=== PATIENT | female | born 1990 | race Caucasian/White ===

== ENCOUNTER 2023-07-16 16:31 | Emergency (ER) | payer BC, SELFPAY ==
--- NOTE | 2023-07-16 16:45 | PC.NURSE ---
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 PT VERBALIZED UNDERSTANDING.
[2023-07-16 16:47] VITALS: BP 112/78; PULSE 92; RESP 16; TEMP 37.3; O2SAT 100
--- NOTE | 2023-07-16 17:26 | PC.NURSE ---
Addendum entered by Glynn Rodriguez RN 07/16/23 17:27: REVENUE AGENT AT BEDSIDE AT 1650 Original Note: REVENUE AGENT GOES INTO ROOM TO ASSESS PT, SHE HAD ELOPED PER REGISTRATION.
--- NOTE | 2023-07-16 19:51 | ED.URI ---
HPI - URI/Sore Throat General Chief Complaint: Upper Respiratory Infection Stated Complaint: SORE THROAT/EARACHE Related Data Home Medications Medication Instructions Recorded Confirmed dextroamphetamine-amphetamine 10 10 mg PO DAILY 07/16/23 07/16/23 mg tablet drospirenone 3 mg-ethinyl 1 tablet PO DAILY 07/16/23 07/16/23 estradiol 0.02 mg tablet Allergies Allergy/AdvReac Type Severity Reaction Status Date / Time Penicillins Allergy Unknown Verified 07/16/23 17:06 Course Vital Signs Vital signs: Vital Signs Oxygen Delivery Room Air 07/16/23 16:44 Temperature 37.3 C 07/16/23 16:47 Pulse Rate 92 07/16/23 16:47 Respiratory Rate 16 07/16/23 16:47 Blood Pressure 112/78 07/16/23 16:47 Pulse Oximetry 100 07/16/23 16:47 Oxygen Delivery Room Air 07/16/23 16:44 MDM - URI/Sore Throat Lab Data Labs: Strep Screen Presumptive Negative *(Reference Range: Negative)* Discharge Plan Discharge Patient Disposition: Left Without Being Seen Prescriptions: No Action dextroamphetamine-amphetamine 10 mg tablet 10 mg PO DAILY drospirenone-ethinyl estradiol 3-0.02 mg tablet 1 tablet PO DAILY Follow-up/Referrals: Fan,Liane [Other]
== END 2023-07-16 16:50 | disposition left against medical advice (07) ==
PROVIDERS: Emergency Provider Nurse Practitioner Family
DX: Z53.21 Procedure and treatment not carried out due to patient leaving prior to being seen by health care provider (principal)
CPT/HCPCS: 87081; 87880; 99199

== ENCOUNTER 2023-07-16 19:46 | Emergency (ER) | payer BC, SELFPAY ==
[2023-07-16 19:53] VITALS: BP 113/78; PULSE 84; RESP 16; TEMP 37.1; O2SAT 100
--- NOTE | 2023-07-16 19:53 | ED.URI ---
HPI - URI/Sore Throat General Chief Complaint: Upper Respiratory Infection Stated Complaint: sore throat Time Seen by Provider: 07/16/23 19:53 Source: patient Mode of arrival: ambulatory Limitations: no limitations History of Present Illness HPI Narrative: 32-year-old female presents with complaint of sore throat to right side, also right ear pain and right enlarged lymph nodes since yesterday. Reports pain worse with swallowing. No difficulty swelling. Afebrile. Denies nausea vomiting diarrhea. Taking ibuprofen to treat pain. All systems reviewed and negative except as noted above. Related Data Home Medications Medication Instructions Recorded Confirmed dextroamphetamine-amphetamine 10 10 mg PO DAILY 07/16/23 07/16/23 mg tablet drospirenone 3 mg-ethinyl 1 tablet PO DAILY 07/16/23 07/16/23 estradiol 0.02 mg tablet Allergies Allergy/AdvReac Type Severity Reaction Status Date / Time Penicillins Allergy Unknown Verified 07/16/23 19:53 Review of Systems Review of Systems: CONSTITUTIONAL: Denies fever, chills, or sweats. EYES: Denies visual changes, redness, or discharge. ENT: Denies rhinorrhea, congestion. Reports right-sided sore throat, right ear pain. CARDIOVASCULAR: Denies chest pain, palpitations, or edema. RESPIRATORY: Denies cough or dyspnea. GASTROINTESTINAL: Denies abdominal pain, nausea, vomiting, or diarrhea. GENITOURINARY: Denies dysuria or hematuria. SKIN: Denies rash or itching. MUSCULOSKELETAL: Denies back pain, joint pain, or myalgia. NEUROLOGIC: Denies headache, numbness, or weakness. PSYCHIATRIC: Denies anxiety or depression. All other systems reviewed are negative, except as documented in HPI. PMFSH Comments At time of signature, agree with nursing past medical, surgical, social and family history. There is no relevant family history pertinent to the presenting complaint. Exam Narrative: GENERAL: This is a well-nourished, well-developed patient, in no apparent distress. HEAD: normocephalic, atraumatic. EYES: PERRL. Sclera clear/white. Vision is grossly intact. EARS: External ears normal, auditory canals clear and without drainage, TMs normal without perforation. Hearing grossly intact. NOSE: External nose normal with no obvious nasal discharge, nares without redness, no rhinorrhea. THROAT: Mucous membranes moist, tonsils 1+ bilaterally with erythema and exudates. No exam findings of peritonsillar abscess. NECK: Neck supple, non-tender without lymphadenopathy, masses or thyromegaly. CARDIOVASCULAR: Regular rate and rhythm without murmurs, gallops, or rubs. RESPIRATORY: Clear to auscultation. Breath sounds equal bilaterally. No wheezes, rales, or rhonchi. SKIN: warm, Dry, intact with no suspicious lesions or rash, good texture and turgor. NEURO: awake, alert, and oriented to person, place and time. There were no obvious focal neurologic abnormalities. EXTREMITIES: No joint tenderness, effusion, or edema noted. Course Course Level of Care: Express Care Visit Vital Signs Vital signs: Reviewed MDM - URI/Sore Throat MDM Narrative Medical decision making narrative: Patient is aware of diagnosis, understands and agrees to treatment plan. Anticipatory guidance given. Patient agrees to follow-up as directed and is aware of reasons to seek care at the emergency department. Portions of this record may have been created with voice recognition software Differential Diagnosis Differential diagnosis: Likely pharyngitis Discharge Plan Discharge Clinical Impression: Strep throat Patient Disposition: Home, Self-Care Condition: Stable Instructions: Antibiotic Form, Strep Throat (ED) Additional Instructions: Take antibiotics as prescribed until gone. Alternate between Tylenol and ibuprofen every 4 hours to treat her pain. Drink at least 64 oz of water a day. Change her toothbrush after taking antibiotics for 24 hours. Follow-up with your primary care physician if s
== END 2023-07-16 20:05 | disposition home or self-care (01) ==
PROVIDERS: Emergency Provider Nurse Practitioner Family
DX: J02.0 Streptococcal pharyngitis (principal); Z79.899 Other long term (current) drug therapy
CPT/HCPCS: 87081; 87880; 99213; G0463

== ENCOUNTER 2023-09-26 16:50 | Emergency (ER) | payer BC, SELFPAY ==
[2023-09-26 17:08] VITALS: BP 103/86; PULSE 90; RESP 16; TEMP 36.8; O2SAT 100
--- NOTE | 2023-09-26 17:37 | ED.URI ---
HPI - URI/Sore Throat General Chief Complaint: Upper Respiratory Infection Stated Complaint: Sinus Infection Time Seen by Provider: 09/26/23 17:28 Source: patient and RN notes reviewed Mode of arrival: ambulatory Limitations: no limitations History of Present Illness HPI Narrative: Patient presents today with a 3 week history of cough, sore throat, postnasal drip, nasal congestion, fatigue, sinus pressure. States the cough and sore throat have somewhat improved. She has been taking Tylenol and ibuprofen with mild relief. Denies shortness of breath or fever. Related Data Home Medications Medication Instructions Recorded Confirmed dextroamphetamine-amphetamine 10 10 mg PO DAILY 07/16/23 09/26/23 mg tablet drospirenone 3 mg-ethinyl 1 tablet PO DAILY 07/16/23 09/26/23 estradiol 0.02 mg tablet levothyroxine 25 mcg tablet 25 mcg PO DAILY 09/26/23 09/26/23 Allergies Allergy/AdvReac Type Severity Reaction Status Date / Time Penicillins Allergy Unknown Verified 09/26/23 17:04 Review of Systems Review of Systems: CONSTITUTIONAL: Denies body aches, fever, chills, or sweats.+ fatigue EYES: Denies visual changes, redness, or discharge. ENT: Denies rhinorrhea, or otalgia.+ sore throat, congestion, postnasal drip, sinus pressure CARDIOVASCULAR: Denies chest pain, palpitations, or edema. RESPIRATORY: Denies dyspnea.+ cough GASTROINTESTINAL: Denies abdominal pain, nausea, vomiting, or diarrhea. GENITOURINARY: Denies dysuria or hematuria. SKIN: Denies rash, itching, or wounds. MUSCULOSKELETAL: Denies back pain, joint pain, or myalgia. NEUROLOGIC: Denies headache, numbness, tingling, or weakness. PSYCH: Denies depression or anxiety. PMFSH Comments At time of signature, I have reviewed and agree with nursing past medical, surgical, social and family history unless otherwise noted. Please see nursing chart for further information. There is no relevant family history pertinent to the presenting complaint Exam Narrative: GENERAL: Mildly ill-appearing, well-nourished, and in no acute distress. HEAD: Normocephalic, atraumatic. EYES: EOMI. No redness or drainage. Conjunctivae normal. ENT: Mucous membranes pink and moist. Nares congested. No rhinorrhea. TMs normal bilaterally. Throat normal with small amount of purulent postnasal drainage. Uvula midline. Bilateral frontal sinus tenderness. NECK: Normal AROM. Supple. No lymphadenopathy. CHEST: No respiratory distress. Clear to auscultation. HEART: Regular rate and rhythm. No murmur appreciated. EXTREMITIES: Normal range of motion. No edema. SKIN: Warm, dry, no rash. Capillary refill normal. Normal skin turgor. NEURO: No focal deficits. Alert and oriented x3. Gait steady. PSYCH: Normal affect. No signs of depression or anxiety. Course Course Level of Care: Express Care Visit Vital Signs Vital signs: Vital Signs Temperature 98.3 F 09/26/23 17:08 Pulse Rate 90 09/26/23 17:08 Respiratory Rate 16 09/26/23 17:08 Blood Pressure 103/86 09/26/23 17:08 Pulse Oximetry 100 09/26/23 17:08 Temperature 98.3 F 09/26/23 17:08 Pulse Rate 90 09/26/23 17:08 Respiratory Rate 16 09/26/23 17:08 Blood Pressure 103/86 09/26/23 17:08 Pulse Oximetry 100 09/26/23 17:08 Reviewed MDM - URI/Sore Throat MDM Narrative Medical decision making narrative: Patient will be treated with doxycycline for sinusitis. Discussed considering Sudafed for her pressure and congestion as well. No testing indicated at this time. Anticipatory guidance given. Differential Diagnosis Differential diagnosis: Likely upper respiratory infection, sinusitis, viral infection and bronchitis Critical Care Time Critical Care Time Critical Care Time: No Discharge Plan Discharge Clinical Impression: Sinusitis Qualifiers: Sinusitis location: frontal Chronicity: acute Recurrence: non-recurrent Qualified Code(s): J01.10 - Acute frontal sinusitis, unspecified
== END 2023-09-26 17:44 | disposition home or self-care (01) ==
PROVIDERS: Emergency Provider Nurse Practitioner
DX: J01.10 Acute frontal sinusitis, unspecified (principal); E03.9 Hypothyroidism, unspecified; E28.2 Polycystic ovarian syndrome; F90.9 Attention-deficit hyperactivity disorder, unspecified type
CPT/HCPCS: 99213; G0463

== ENCOUNTER 2024-04-03 08:22 | Emergency (ER) | payer BC, SELFPAY ==
[2024-04-03 08:32] VITALS: BP 98/71; PULSE 106; RESP 16; TEMP 36.9; O2SAT 100
--- NOTE | 2024-04-03 08:32 | ED.EAR ---
HPI - Ear Problem General Chief complaint: Ear Stated complaint: Ear Pain Time Seen by Provider: 04/03/24 09:00 Source: patient and RN notes reviewed Mode of arrival: ambulatory Limitations: no limitations History of Present Illness HPI Narrative: 33-year-old female presents with concern for bilateral ear pain and sore throat. Reports she has had ear pain for 3 weeks it has been getting worse. Reports she flew to [place] in early March in the pain started at that time. Reports she feels like she is underwater. Reports she has been using ciprofloxacin ear drops for 4 days. She reports her parents who also went to floor with her both had ear infections. She reports she has had a headache. She denies fever. MD Complaint: ear pain Related Data Home Medications Medication Instructions Recorded Confirmed dextroamphetamine-amphetamine 10 10 mg PO DAILY 07/16/23 04/03/24 mg tablet drospirenone 3 mg-ethinyl 1 tablet PO DAILY 07/16/23 04/03/24 estradiol 0.02 mg tablet levothyroxine 25 mcg tablet 25 mcg PO DAILY 09/26/23 04/03/24 ferrous sulfate 325 mg (65 mg mg 04/03/24 iron) tablet (FeroSul) Allergies Allergy/AdvReac Type Severity Reaction Status Date / Time Penicillins Allergy Unknown Verified 04/03/24 08:41 Review of Systems Review of Systems: CONSTITUTIONAL: Denies malaise, chills, sweats, or fever. EYES: Denies visual changes, redness, or discharge. ENT: Denies rhinorrhea, congestion, sinus pain,. Reports sore throat and bilateral ear pain CARDIOVASCULAR: Denies chest pain, palpitations, or edema. RESPIRATORY: Denies cough. Denies dyspnea. GASTROINTESTINAL: Denies abdominal pain, nausea, vomiting, diarrhea SKIN: Denies rash or itching. MUSCULOSKELETAL: Denies myalgia. NEUROLOGIC: Reports headache. All systems reviewed & are unremarkable except as noted in HPI and below PMFSH Comments At time of signature, agree with nursing past medical, surgical, social and family history. There is no relevant family history pertinent to the presenting complaint Exam Narrative: GENERAL: Well-appearing, well-nourished, and in no acute distress. HEAD: Normocephalic EYES: PERRLA, conjunctivae clear ENT: Nares clear, turbinates edematous, clear discharge. Mucous membranes moist. TM pearly [place] with dull light reflex bilaterally; no tragal tenderness. Oropharynx not erythematous without lesions. Tonsils not enlarged and without exudate, no drooling, no hoarseness, no trismus, uvula midline. NECK: Supple. No lymphadenopathy CHEST: Clear to auscultation, breath sounds equal. No wheezing, rhonchi, rales, or stridor. No respiratory distress, speaks in full sentences. HEART: Regular rate and rhythm. No murmur heard. SKIN: Warm, dry, no rash. NEURO: Alert and oriented x3. PSYCH: Normal mood and affect Course Course Emergency Course: Patient is aware of diagnosis, understands and agrees to treatment plan. Anticipatory guidance given. Patient agrees to follow-up as directed and is aware of reasons to seek care at the emergency department. Portions of this record may have been created with voice recognition software Level of Care: [facility] Visit Vital Signs Vital signs: Vital Signs Temperature 98.4 F 04/03/24 08:32 Pulse Rate 106 H 04/03/24 08:32 Respiratory Rate 16 04/03/24 08:32 Blood Pressure 98/71 L 04/03/24 08:32 Pulse Oximetry 100 04/03/24 08:32 Temperature 98.4 F 04/03/24 08:32 Pulse Rate 106 H 04/03/24 08:32 Respiratory Rate 16 04/03/24 08:32 Blood Pressure 98/71 L 04/03/24 08:32 Pulse Oximetry 100 04/03/24 08:32 Reviewed. Medical Decision Making MDM Narrative Medical decision making narrative: I evaluated this in the [facility]. History is obtained from patient who is an independent historian and physical exam was performed.? Available medical records were reviewed. ? Exam findings and relevant testing show no acute concerns or changes; patient is non-toxic
[2024-04-03 09:23] LABS: EDSTREPNEGPOS1 Presumptive Negative
== END 2024-04-03 09:22 | disposition home or self-care (01) ==
PROVIDERS: Emergency Provider Nurse Practitioner
DX: H92.03 Otalgia, bilateral (principal); E03.9 Hypothyroidism, unspecified; E28.2 Polycystic ovarian syndrome; F90.9 Attention-deficit hyperactivity disorder, unspecified type
CPT/HCPCS: 87081; 87880; 99213; G0463

== ENCOUNTER 2024-05-05 16:25 | Emergency (ER) | payer BC, SELFPAY ==
--- NOTE | 2024-05-05 16:28 | ED.SKABFB ---
HPI - Skin/Abscess/Foreign Bdy General Chief complaint: Skin/Abscess/Foreign Body Stated complaint: RASH Time Seen by Provider: 05/05/24 16:26 Source: patient Mode of arrival: ambulatory Limitations: no limitations History of Present Illness HPI narrative: Gabbie is a 33-year-old female patient presenting to the clinic today with complaints of a rash on her left lower abdomen and left side of her back-also has rash to the mid back. Is very itchy. She is concerned that she may have shingles. She reports that she is doing IVF and has just had an implant procedure. Denies any environmental changes. Related Data Home Medications Medication Instructions Recorded Confirmed dextroamphetamine-amphetamine 10 10 mg PO DAILY 07/16/23 04/03/24 mg tablet drospirenone 3 mg-ethinyl 1 tablet PO DAILY 07/16/23 04/03/24 estradiol 0.02 mg tablet levothyroxine 25 mcg tablet 25 mcg PO DAILY 09/26/23 04/03/24 ferrous sulfate 325 mg (65 mg mg 04/03/24 iron) tablet (FeroSul) Allergies Allergy/AdvReac Type Severity Reaction Status Date / Time Penicillins Allergy Unknown Verified 04/03/24 08:41 Review of Systems Review of Systems: Pertinent positives per HPI. Patient denies any fever, chills, headache, visual changes, dizziness, cough, runny nose, sore throat, shortness of breath, chest pain, palpitations, nausea, vomiting, diarrhea, constipation, abdominal pain, or any urinary issues. PMFSH Comments At the time of my signature, I reviewed and agree with the nursing past medical, surgical, social, and family history. There is no relevant family history pertinent to the patient complaint. Exam Narrative: General: Well-developed, well nourished, in no apparent distress Head: Normocephalic, atraumatic. Cardio: Regular rate and rhythm, s1 and s2 normal, no murmur appreciated. Resp: Clear to auscultation bilaterally, no rhonchi, rales, wheezing or rubs. Integumentary: [place], warm, and dry, intact without lesion, red, raised, itchy rash to the left lower abdomen, left posterior hip, and to the mid back just below the bra line. Course Course Emergency Course: Portions of this record may have been created with voice recognition software. Level of Care: Express Care Visit Vital Signs Vital signs: Vital signs reviewed MDM - Skin/Abscess/Foreign Bdy MDM Narrative Medical decision making narrative: At the time of visit patient is resting comfortably on the exam table. Patient appears to be nontoxic. Plan: I suspect patient has dermatitis. Prescription for triamcinolone cream was sent to the pharmacy. Supportive measures were discussed with the patient and they voiced understanding discharge instructions and agrees to treatment plan. Return precautions reviewed Differential Diagnosis Differential diagnosis: Likely abscess of skin or subcutaneous tissue, viral exanthem, dermatophytosis, urticaria, herpes zoster, allergic reaction to drug, cellulitis, eczema, insect bites, impetigo and contact dermatitis Discharge Plan Discharge Clinical Impression: Dermatitis Patient Disposition: Home, Self-Care Condition: Stable Instructions: Antibiotic Form, Dermatitis (ED) Additional Instructions: Apply triamcinolone cream as directed Avoid hot showers Avoid scratching as this can cause a secondary infection May take benadryl 25-50mg every 6 hours as needed for itching. Follow up with your PCP in 3-5 days if symptoms persist or sooner if they worsen Go to the Emergency Room if symptoms worsen- fever, rash spreading with treatment, shortness of breath, tongue swelling, drooling, or chest pain Prescriptions: New triamcinolone acetonide 0.1 % cream 1 applic topical BID 7 Days Qty: 30 0RF No Action dextroamphetamine-amphetamine 10 mg tablet 10 mg PO DAILY drospirenone-ethinyl estradiol 3-0.02 mg tablet 1 tablet PO DAILY levothyroxine 25 mcg tablet 25 mcg PO DAILY ferrous
[2024-05-05 16:31] VITALS: BP 99/72; PULSE 78; RESP 16; TEMP 36.7; O2SAT 100
== END 2024-05-05 16:50 | disposition home or self-care (01) ==
PROVIDERS: Emergency Provider Nurse Practitioner Family
DX: L30.9 Dermatitis, unspecified (principal); F90.9 Attention-deficit hyperactivity disorder, unspecified type; E03.9 Hypothyroidism, unspecified; E28.2 Polycystic ovarian syndrome
CPT/HCPCS: 99213; G0463